=== PATIENT | female | born 1990 | race Caucasian/White ===

== ENCOUNTER → 2023-03-02 | Outpatient (CLI) | payer OTHER | END | disposition home or self-care (01) | LOC: LAB 15:15 | PROVIDERS: ATTEND Obstetrics & Gynecology | DX: Z34.80 Encounter for supervision of other normal pregnancy, unspecified trimester (principal); Z3A.00 Weeks of gestation of pregnancy not specified | CPT/HCPCS: 36415; 84144; 84702 ==

== ENCOUNTER 2023-03-09 08:31 | Inpatient (IN) | payer OTHER ==
[~2023-03-09] VITALS: Ht 160 cm; Wt 70.6 kg
[2023-03-09 09:24] LABS: Basophils # (auto) 0 10 ^3/uL (0-0.2); Basophils % (auto) 0.2 % (0.0-2.0); Eosinophils # (auto) 0 10 ^3/uL (0-0.8); Eosinophils % (auto) 0.2 % (0.0-7.0); Hematocrit 42.7 % (36.0-46.0); Hemoglobin 14.4 g/dL (12.2-16.2); Lymphocytes # (auto) 1.3 10 ^3/uL (0.4-5.4); Mean Corpuscular Hemoglobin 30.3 pg (28.0-32.0); Mean Corpuscular Hgb Conc. 33.7 g/dL (32.0-36.0); Mean Corpuscular Volume 90.1 fL (80.0-100.0); Monocytes # (auto) 0.5 10 ^3/uL (0-1.3); Monocytes % (auto) 4.5 % (0.0-12.0); Neutrophils # (auto) 8.2 10 ^3/uL (1.6-8.6); Neutrophils % (auto) 82.1 % (37.0-80.0); Nucleated Red Blood Cells % 0.1 %; Red Blood Cells 4.74 10^6/uL (4.0-5.20); Red Cell Distribution Width 12.6 % (11.8-14.3)
[2023-03-09 09:26] LABS: Urine Bacteria NONE SEEN /hpf (None Seen); Urine Blood Negative /uL (Negative); Urine Clarity Clear (Clear); Urine Color Yellow (Yellow); Urine Mucus FEW (None Seen); Urine Protein, UAD TRACE (Negative); Urine Specific Gravity 1.014 (1.001-1.035); Urine Urobilinogen Normal (Negative); Urine WBC 8 /hpf (0 - 5); Urine pH 6.5 (5.0-8.0)
[2023-03-09 09:42] LABS: Alanine Aminotransferase 84 U/L (7-40); Albumin 4.5 g/dL (3.2-4.8); Alkaline Phosphatase 71 U/L (46-116); Anion Gap 9 (5-15); Aspartate Aminotransferase 26 U/L (13-40); BUN/Creatinine Ratio 7.5 (10.0-20.0); Blood Urea Nitrogen 6 mg/dL (9-23); Calcium 9.6 mg/dL (8.5-10.1); Carbon Dioxide 23 mmol/L (20-30); Chloride 105 mmol/L (98-107); Glucose 100 mg/dL (74-106); Potassium 4.2 mmol/L (3.5-5.1); Sodium 137 mmol/L (136-145)
[2023-03-09 09:43] LABS: Bilirubin, Total 0.6 mg/dL (0.2-1.0); Total Protein 7.5 g/dL (5.7-8.2)
[2023-03-09] MEDS ORDERED: METOCLOPRAMIDE HCL 5MG/ml INJ 2ml VIAL IV ONE ×3 (10:30→16:45)
[2023-03-09] MEDS ORDERED: SODIUM CHLORIDE 0.9% 1,000 ML IV ONE (10:30)
[2023-03-09] MEDS ORDERED: ceFAZolin 1GM/50ML 50 ML IV STA (12:09)
[2023-03-09] MEDS ORDERED: D5W/LACTATED RINGERS 1,000 ML IV ONE (12:15)
[2023-03-09 16:24] VITALS: O2SAT 98
[2023-03-09] MEDS ORDERED: PROMETHAZINE HCL 25 MG/ML 1ML IV ONE (18:00)
[2023-03-09] MEDS: SODIUM CHLORIDE 0.9% 1,000 ML IV SCH (18:21)
[2023-03-09] MEDS: ceFAZolin 1GM/50ML 50 ML IV SCH (18:24)
[2023-03-09 19:30] VITALS: RESP 18
[2023-03-09] MEDS: ONDANSETRON HCL 4 MG/2 ML VIAL IV PRN (20:47)
[2023-03-09] MEDS: ACETAMINOPHEN 325 MG TAB PO PRN ×2 (20:47→21:27)
[2023-03-09] MEDS: METOCLOPRAMIDE HCL 5MG/ml INJ 2ml VIAL IV PRN ×2 (21:32→21:37)
[2023-03-09 23:12] VITALS: BP 113/68; PULSE 98; RESP 18; TEMP 98.5; O2SAT 96
[2023-03-09 23:15] VITALS: BP 113/68; PULSE 97; RESP 18; TEMP 98.5; O2SAT 97
[2023-03-10] MEDS ORDERED: PANT40TA2 PO (00:30)
[2023-03-10] MEDS: ceFAZolin 1GM/50ML 50 ML IV SCH ×3 (02:07→17:44)
[2023-03-10 04:22] VITALS: BP 83/42; PULSE 84; PULSE 95; RESP 16; TEMP 98.4; O2SAT 97
[2023-03-10 06:22] LABS: Basophils # (auto) 0 10 ^3/uL (0-0.2); Basophils % (auto) 0.4 % (0.0-2.0); Eosinophils # (auto) 0.1 10 ^3/uL (0-0.8); Eosinophils % (auto) 0.9 % (0.0-7.0); Hematocrit 36.8 % (36.0-46.0); Hemoglobin 12.6 g/dL (12.2-16.2); Lymphocytes # (auto) 1.8 10 ^3/uL (0.4-5.4); Lymphocytes % (auto) 23.1 % (10.0-50.0); Mean Corpuscular Hemoglobin 30.8 pg (28.0-32.0); Mean Corpuscular Hgb Conc. 34.2 g/dL (32.0-36.0); Mean Corpuscular Volume 90.2 fL (80.0-100.0); Monocytes # (auto) 0.5 10 ^3/uL (0-1.3); Neutrophils # (auto) 5.3 10 ^3/uL (1.6-8.6); Neutrophils % (auto) 68.6 % (37.0-80.0); Red Blood Cells 4.08 10^6/uL (4.0-5.20); Red Cell Distribution Width 12.6 % (11.8-14.3); White Blood Cell 7.7 10^3/uL (4.4-10.8)
[2023-03-10 06:26] LABS: Alanine Aminotransferase 52 U/L (7-40); Albumin 3.6 g/dL (3.2-4.8); Alkaline Phosphatase 54 U/L (46-116); Anion Gap 8 (5-15); Aspartate Aminotransferase 15 U/L (13-40); Calcium 8.5 mg/dL (8.5-10.1); Carbon Dioxide 22 mmol/L (20-30); Chloride 109 mmol/L (98-107); Glucose 84 mg/dL (74-106); Potassium 3.8 mmol/L (3.5-5.1); Sodium 139 mmol/L (136-145)
[2023-03-10 06:27] LABS: Bilirubin, Total 0.6 mg/dL (0.2-1.0); Total Protein 6.1 g/dL (5.7-8.2)
[2023-03-10 06:39] LABS: BUN/Creatinine Ratio 7.8 (10.0-20.0); Blood Urea Nitrogen < 5 mg/dL (9-23)
[2023-03-10] MEDS: ONDANSETRON HCL 4 MG/2 ML VIAL IV PRN (08:49)
[2023-03-10 09:00] VITALS: BP 106/66; PULSE 95; RESP 17; TEMP 98.6; O2SAT 97
[2023-03-10] MEDS: SODIUM CHLORIDE 0.9% 1,000 ML IV SCH ×2 (10:40→19:00)
[2023-03-10 12:30] VITALS: BP 125/69; PULSE 86; RESP 19; TEMP 98.9; O2SAT 99
[2023-03-10] MEDS: METOCLOPRAMIDE HCL 5MG/ml INJ 2ml VIAL IV PRN (14:14)
[2023-03-10 17:00] VITALS: BP 130/67; PULSE 82; RESP 19; TEMP 98.4; O2SAT 95
[2023-03-10 20:00] VITALS: RESP 16
[2023-03-10 22:00] VITALS: BP 98/59; PULSE 80; RESP 19; TEMP 98.6; O2SAT 96
[2023-03-10] MEDS ORDERED: PROMETHAZINE HCL 25 MG/ML 1ML IM SCH (22:00)
[2023-03-10] MEDS: PROMETHAZINE HCL 25 MG/ML 1ML IV SCH (22:15)
[2023-03-11 08:00] VITALS: RESP 18
[2023-03-11] MEDS: ceFAZolin 1GM/50ML 50 ML IV SCH (10:14)
[2023-03-11] MEDS: PROMETHAZINE HCL 25 MG/ML 1ML IV SCH (12:00)
[2023-03-11] MEDS ORDERED: PROM25TA10 PO (13:20)
[2023-03-11] MEDS ORDERED: PROMETHAZINE HCL 25 MG/ML 1ML IM SCH (21:00)
== END 2023-03-11 16:28 | disposition home or self-care (01) | DRG 832 ==
LOC: ER 08:31 → OVERFLOW 17:56 → WEST WING 22:48
PROVIDERS: ADMIT Nurse Practitioner Family; ATTEND Internal Medicine Geriatric Medicine
DX: O23.11 Infections of bladder in pregnancy, first trimester (principal); N30.00 Acute cystitis without hematuria; O21.0 Mild hyperemesis gravidarum; O99.281 Endocrine, nutritional and metabolic diseases complicating pregnancy, first trimester; E86.0 Dehydration; Z3A.01 Less than 8 weeks gestation of pregnancy; Z88.8 Allergy status to other drugs, medicaments and biological substances
CPT/HCPCS: 36415; 76801; 76817; 80053; 81001; 83690; 84702; 85025; 86900; 86901; 87086; 96361; 96374; 96376; G0378; J0690; J2405

== ENCOUNTER 2023-03-13 11:57 | Inpatient (IN) | payer OTHER ==
[~2023-03-13] VITALS: Ht 160 cm; Wt 67.2 kg
[~2023-03-13 11:57] MED LIST: PANT40TA2 PO; PROM25TA10 PO
[2023-03-13 13:48] VITALS: PULSE 100; RESP 16; O2SAT 97
[2023-03-13] MEDS ORDERED: ENOXAPARIN SOD 60 MG/0.6 ML SYRINGE SC ONE (16:00)
[2023-03-13 16:20] LABS: Basophils # (auto) 0 10 ^3/uL (0-0.2); Basophils % (auto) 0.3 % (0.0-2.0); Eosinophils # (auto) 0 10 ^3/uL (0-0.8); Eosinophils % (auto) 0.5 % (0.0-7.0); Hematocrit 42.4 % (36.0-46.0); Hemoglobin 14.3 g/dL (12.2-16.2); Lymphocytes # (auto) 1.9 10 ^3/uL (0.4-5.4); Lymphocytes % (auto) 18.8 % (10.0-50.0); Mean Corpuscular Hgb Conc. 33.8 g/dL (32.0-36.0); Mean Corpuscular Volume 91.6 fL (80.0-100.0); Monocytes # (auto) 0.6 10 ^3/uL (0-1.3); Monocytes % (auto) 5.9 % (0.0-12.0); Neutrophils # (auto) 7.7 10 ^3/uL (1.6-8.6); Neutrophils % (auto) 74.5 % (37.0-80.0); Nucleated Red Blood Cells % 0.1 %; Red Blood Cells 4.63 10^6/uL (4.0-5.20); Red Cell Distribution Width 13.2 % (11.8-14.3); White Blood Cell 10.3 10^3/uL (4.4-10.8)
[2023-03-13 16:45] LABS: INR 1.06 (0.9-1.15); Prothrombin Time 11.1 sec (9.3-11.8)
[2023-03-13] MEDS ORDERED: SODIUM CHLORIDE 0.9% 1,000 ML IV ONE (16:45)
[2023-03-13 17:21] LABS: Urine Bacteria NONE SEEN /hpf (None Seen); Urine Blood Negative /uL (Negative); Urine Clarity Clear (Clear); Urine Color Yellow (Yellow); Urine Mucus FEW (None Seen); Urine Protein, UAD TRACE (Negative); Urine Specific Gravity 1.017 (1.001-1.035); Urine Urobilinogen Normal (Negative); Urine WBC 10 /hpf (0 - 5); Urine pH 6.5 (5.0-8.0)
[2023-03-13] MEDS ORDERED: PROMETHAZINE HCL 6.25 MG/5 ML ORAL SYRUP PO PRN (17:45)
[2023-03-13] MEDS ORDERED: cefTRIAXone 1GM/50ML D5W 50 ML IV ONE (17:45)
[2023-03-13] MEDS ORDERED: ACETAMINOPHEN 325 MG TAB PO PRN (17:45)
[2023-03-13] MEDS ORDERED: DOCUSATE SOD 100 MG CAP PO PRN (17:45)
[2023-03-13 19:05] LABS: Chloride 107 mmol/L (98-107); Sodium 137 mmol/L (136-145)
[2023-03-13 19:07] LABS: Calcium 8.7 mg/dL (8.7-10.4)
[2023-03-13 19:10] LABS: Potassium 3.3 mmol/L (3.5-5.1)
[2023-03-13 19:12] LABS: Glucose 111 mg/dL (74-106)
[2023-03-13 19:13] LABS: BUN/Creatinine Ratio 8.3 (10.0-20.0); Blood Urea Nitrogen < 5 mg/dL (9-23)
[2023-03-13 19:28] LABS: Anion Gap 8 (5-15); Carbon Dioxide 22 mmol/L (20-30)
[2023-03-13 19:30] VITALS: PULSE 87; RESP 16; O2SAT 96
[2023-03-13] MEDS ORDERED: POTASSIUM CHL 20 Meq TABLET PO ONE (19:30)
[2023-03-14] MEDS: ENOXAPARIN SOD 80 MG/0.8ML SYRINGE SC SCH ×2 (04:51→16:15)
[2023-03-14 05:29] LABS: Basophils # (auto) 0 10 ^3/uL (0-0.2); Basophils % (auto) 0.4 % (0.0-2.0); Eosinophils # (auto) 0.1 10 ^3/uL (0-0.8); Eosinophils % (auto) 1.4 % (0.0-7.0); Hematocrit 40.3 % (36.0-46.0); Hemoglobin 13.6 g/dL (12.2-16.2); Lymphocytes # (auto) 1.8 10 ^3/uL (0.4-5.4); Lymphocytes % (auto) 29.2 % (10.0-50.0); Mean Corpuscular Hgb Conc. 33.9 g/dL (32.0-36.0); Mean Corpuscular Volume 91.6 fL (80.0-100.0); Monocytes # (auto) 0.5 10 ^3/uL (0-1.3); Monocytes % (auto) 8.4 % (0.0-12.0); Neutrophils # (auto) 3.7 10 ^3/uL (1.6-8.6); Neutrophils % (auto) 60.6 % (37.0-80.0); Nucleated Red Blood Cells % 0.1 %; Red Cell Distribution Width 12.9 % (11.8-14.3)
[2023-03-14 05:43] LABS: Alanine Aminotransferase 24 U/L (7-40); Albumin 4.1 g/dL (3.2-4.8); Alkaline Phosphatase 67 U/L (46-116); Anion Gap 8 (5-15); Aspartate Aminotransferase 15 U/L (13-40); Carbon Dioxide 23 mmol/L (20-30); Chloride 107 mmol/L (98-107); Glucose 85 mg/dL (74-106); Sodium 138 mmol/L (136-145)
[2023-03-14 05:44] LABS: Bilirubin, Total 0.5 mg/dL (0.2-1.0); Total Protein 6.9 g/dL (5.7-8.2)
[2023-03-14 05:58] LABS: BUN/Creatinine Ratio 8.5 (10.0-20.0); Blood Urea Nitrogen < 5 mg/dL (9-23)
[2023-03-14 07:29] VITALS: RESP 15; O2SAT 0
[2023-03-14] MEDS: cefTRIAXone 1GM/50ML D5W 50 ML IV SCH (09:12)
[2023-03-14] MEDS: FAMOTIDINE 20 MG TAB PO SCH (10:28)
[2023-03-14] MEDS ORDERED: ONDANSETRON HCL 4 MG/2 ML VIAL IV PRN (10:30)
[2023-03-14 13:00] VITALS: BP 110/62; PULSE 80; RESP 19; TEMP 98; O2SAT 96
[2023-03-14] MEDS: PROMETHAZINE HCL 25 MG/ML 1ML IV PRN (14:27)
[2023-03-14] MEDS ORDERED: PREN-96 PO (15:09)
[2023-03-14 17:00] VITALS: BP 102/75; PULSE 101; RESP 16; TEMP 97.6; O2SAT 98
[2023-03-14 20:00] VITALS: PULSE 73; RESP 17; O2SAT 96
[2023-03-14 22:00] VITALS: BP 110/72; PULSE 73; RESP 17; TEMP 98.3; O2SAT 96
[2023-03-15] MEDS: ENOXAPARIN SOD 80 MG/0.8ML SYRINGE SC SCH ×2 (04:26→16:39)
[2023-03-15 05:00] VITALS: BP 116/73; PULSE 84; RESP 18; TEMP 98.1; O2SAT 98
[2023-03-15 08:42] VITALS: BP 110/63; PULSE 72; RESP 16; TEMP 97.6; O2SAT 97
[2023-03-15] MEDS: cefTRIAXone 1GM/50ML D5W 50 ML IV SCH (09:13)
[2023-03-15] MEDS: FAMOTIDINE 20 MG TAB PO SCH (09:13)
[2023-03-15 13:00] VITALS: BP 112/68; PULSE 85; RESP 17; TEMP 98.7; O2SAT 98
[2023-03-15 16:51] VITALS: BP 112/73; PULSE 90; RESP 17; TEMP 97.9; O2SAT 98
[2023-03-15] MEDS: PROMETHAZINE HCL 25 MG/ML 1ML IV PRN (19:48)
[2023-03-15 20:00] VITALS: PULSE 79; RESP 16; O2SAT 96
[2023-03-15 22:00] VITALS: BP 111/62; PULSE 79; RESP 16; TEMP 98.2; O2SAT 97
[2023-03-16] MEDS: ENOXAPARIN SOD 80 MG/0.8ML SYRINGE SC SCH ×2 (04:03→16:13)
[2023-03-16 05:00] VITALS: BP 105/61; PULSE 77; RESP 16; TEMP 97.8; O2SAT 97
[2023-03-16] MEDS: cefTRIAXone 1GM/50ML D5W 50 ML IV SCH (09:00)
[2023-03-16] MEDS ORDERED: LACTULOSE 20Gm/30ML SOLN PO ONE (09:15)
[2023-03-16] MEDS: FAMOTIDINE 20 MG TAB PO SCH (09:22)
[2023-03-16] MEDS: PROMETHAZINE HCL 6.25 MG/5 ML ORAL SYRUP PO PRN ×2 (09:23→16:25)
[2023-03-16 09:54] VITALS: BP 109/66; PULSE 88; RESP 20; TEMP 97.5; O2SAT 98
[2023-03-16 13:00] VITALS: BP 106/56; PULSE 86; RESP 20; TEMP 97.6; O2SAT 95
[2023-03-16] MEDS ORDERED: CEPHALEXIN 250 MG CAP PO SCH (14:00)
[2023-03-16] MEDS ORDERED: ENOX80IN SC (16:56)
[2023-03-16] MEDS ORDERED: CEPH500C PO (16:56)
[2023-03-16 17:06] VITALS: BP 107/56; PULSE 85; RESP 21; TEMP 97.6; O2SAT 96
== END 2023-03-16 18:20 | disposition home or self-care (01) | DRG 832 ==
LOC: ER 11:57 → OVERFLOW 17:59 → CENTRAL 03-14 09:29
PROVIDERS: ADMIT Nurse Practitioner Family; ATTEND Family Medicine
DX: O22.31 Deep phlebothrombosis in pregnancy, first trimester (principal); I82.611 Acute embolism and thrombosis of superficial veins of right upper extremity; N30.00 Acute cystitis without hematuria; I82.621 Acute embolism and thrombosis of deep veins of right upper extremity; O23.11 Infections of bladder in pregnancy, first trimester; E86.0 Dehydration; O21.0 Mild hyperemesis gravidarum; G43.909 Migraine, unspecified, not intractable, without status migrainosus; O99.281 Endocrine, nutritional and metabolic diseases complicating pregnancy, first trimester; O99.351 Diseases of the nervous system complicating pregnancy, first trimester; Z3A.08 8 weeks gestation of pregnancy; Z88.8 Allergy status to other drugs, medicaments and biological substances
CPT/HCPCS: 36415; 76801; 80048; 80053; 81001; 85025; 85610; 87081; 87086; 93005; 93971; G0378; J0696; J2405

== ENCOUNTER → 2023-05-18 | Outpatient (CLI) | payer OTHER ==
[~2023-05-18] MED LIST changes: +CEPH500C PO; +ENOX80IN SC; +PREN-96 PO
[2023-05-18 15:19] LABS: Basophils # (auto) 0 10 ^3/uL (0-0.2); Basophils % (auto) 0.4 % (0.0-2.0); Eosinophils # (auto) 0.1 10 ^3/uL (0-0.8); Eosinophils % (auto) 0.7 % (0.0-7.0); Hematocrit 37.4 % (36.0-46.0); Hemoglobin 12.6 g/dL (12.2-16.2); Lymphocytes % (auto) 16.5 % (10.0-50.0); Mean Corpuscular Hemoglobin 30.4 pg (28.0-32.0); Mean Corpuscular Hgb Conc. 33.7 g/dL (32.0-36.0); Mean Corpuscular Volume 90.2 fL (80.0-100.0); Monocytes # (auto) 0.6 10 ^3/uL (0-1.3); Monocytes % (auto) 5.1 % (0.0-12.0); Neutrophils # (auto) 9.2 10 ^3/uL (1.6-8.6); Neutrophils % (auto) 77.3 % (37.0-80.0); Red Blood Cells 4.15 10^6/uL (4.0-5.20); Red Cell Distribution Width 13.4 % (11.8-14.3); White Blood Cell 11.8 10^3/uL (4.4-10.8)
[2023-05-18 15:41] LABS: INR 0.98 (0.9-1.15); Partial Thromboplastin Time 25.5 SEC (24.5-34.5); Prothrombin Time 10.3 sec (9.3-11.8)
== END | disposition home or self-care (01) ==
LOC: LAB 14:43
PROVIDERS: ATTEND Obstetrics & Gynecology
DX: I82.611 Acute embolism and thrombosis of superficial veins of right upper extremity (principal)
CPT/HCPCS: 36415; 85025; 85610; 85730